=== PATIENT | female | born 1985 | race African-American/Black ===

== ENCOUNTER 2017-02-03 17:02 | Emergency (ER) | payer OTHER ==
[2017-02-03] MEDS ORDERED: KETOROLAC TROMETHAMINE 60 MG/2 ML VIAL IM ONE (17:12)
[2017-02-03 17:34] VITALS: BP 160/58
--- NOTE | 2017-02-03 20:01 | ED Physician Documentation ---
General Adult - HISTORIAN Historian: patient - HPI Stated Complaint: Right Sided Jaw Pain Chief Complaint: General Adult Timing: worse Severity: severe Further Comments: yes (31 year old female presents with complaints of right jaw pain. C/O intermittent shooting pain in upper jaw, radiating to ear x 3 days. Denies injury, reports similar episode 1 year ago.) - ROS CONST: no problems EYES/ENT: none CVS/RESP: none GI/: none MS/SKIN/LYMPH: none NEURO/PSYCH: denies: headache, fainting, dizziness, tingling, numbness, difficulty walking, difficulty with speech, anxiety, depression - PAST HX Past History: hypertension, other (depression) Allergies/Adverse Reactions: Allergies Allergy/AdvReac Type Severity Reaction Status Date / Time latex Allergy Verified 02/03/17 17:13 Home Medications: Ambulatory Orders Medication Instructions Recorded Lisinopril [Prinivil] 20 mg PO QD 08/23/14 Citalopram Hydrobromide [Celexa] 20 mg PO QD 02/03/17 - SOCIAL HX Smoking History: non-smoker - FAMILY HX Family History: No - VITAL SIGNS Vital Signs: Vital Signs Temp Pulse Resp BP Pulse Ox 98 F 72 18 160/58 98 02/03/17 17:05 02/03/17 17:32 02/03/17 17:32 02/03/17 17:32 02/03/17 17:32 - REVIEWED ASSESSMENTS Nursing Assessment Reviewed: Yes Vitals Reviewed: Yes Progress - Progress Progress: Cannot determine source of pain, no dental caries, no gum disease, no gum erythema. Patient states she has not been able to sleep the past 2 nights, reports pain is worse laying down. Discharged with ultra. Encouraged to follow up with dentist. ED Results Lab/Radiology - Orders Orders: ED Orders Category Date Time Status Ketorolac Tromethamine [Toradol] Med 02/03/17 17:12 Discontinued 60 mg IM NOW ONE General Adult Physical Exam - PHYSICAL EXAM GENERAL APPEARANCE: moderate distress EENT: eye inspection normal, ENT inspection normal, pharynx normal, no signs of dehydration, DAVID, no nystagmus, TM's nml RESPIRATORY: no resp distress, chest non-tender, breath sounds normal CVS: reg rate & rhythm, heart sounds normal, equal pulses, no murmur, no gallop , PMI nml, no JVD, no friction rub, 24 ABDOMEN: soft, no organomegaly, normal bowel sounds, no abdominal bruit, no distension BACK: normal inspection, no CVA tenderness SKIN: normal color, warm/dry, NR, INT, PAL, DR EXTREMITIES: non-tender, normal range of motion, no evidence of injury, no edema , J, ENGINEERING LAB TECHNICIAN NEURO: oriented X3, CN's nml as tested, motor nml, sensation nml, mood/affect nml Discharge Clincal Impression: Jaw pain Referrals: Primary Doctor,No [Primary Care Provider] - 2 Days Additional Instructions: See your dentist this week. Home Medications: Ambulatory Orders Lisinopril [Prinivil] 20 mg PO QD 08/23/14 Citalopram Hydrobromide [Celexa] 20 mg PO QD 02/03/17 Condition: Stable Disposition: 01 HOME, SELF-CARE Decision to Admit: NO Decision Time: 17:25
== END 2017-02-03 17:32 | disposition home or self-care (01) ==
LOC: ED 17:02
DX: R68.84 Jaw pain (principal)
CPT/HCPCS: 96372; 99283; J1885

== ENCOUNTER 2017-02-13 18:59 | Emergency (ER) | payer SELFPAY ==
[2017-02-13 19:44] LABS: BASOPHILS % 0.2 (0.0-1.5); EOSINOPHILS % 1.3 % (0.0-6.8); MEAN CORPUSCULAR VOLUME 85.3 fl (80.0-100.0); MONOCYTES % 3.6 % (0.0-11.0); NEUTROPHILS # 6.2 # k/uL (1.4-7.7)
--- NOTE | 2017-02-13 20:03 | ED Physician Documentation ---
General Adult - HISTORIAN Historian: patient - HPI Stated Complaint: tooth pain Chief Complaint: General Adult Onset: days ago (01/31/17) Further Comments: yes (31 year old female patient presents with complaints of right jaw and dental pain. Patient reports subjective fever. States she has continued to have jaw and molar pain. Old records reviewed, patient seen on with similar complaints which started on 01/31/2017. Patient was instructed to follow up with dentist, has not seen dentist. Is out of ultram. Reports not taking her BP medication for 2 days. Rates pain 5/10) - ROS CONST: recent illness (right jaw, dental pain since 01/31) EYES/ENT: nasal congestion. denies: problems with vision, sore throat, nasal drainage CVS/RESP: cough. denies: chest pain, shortness of breath GI/: none MS/SKIN/LYMPH: none NEURO/PSYCH: denies: headache, fainting, dizziness, tingling, numbness, difficulty walking, difficulty with speech, anxiety, depression, other - PAST HX Past History: hypertension, other (depression) Allergies/Adverse Reactions: Allergies Allergy/AdvReac Type Severity Reaction Status Date / Time latex Allergy Verified 02/03/17 17:13 Home Medications: Ambulatory Orders Medication Instructions Recorded Lisinopril [Prinivil] 20 mg PO QD 08/23/14 Citalopram Hydrobromide [Celexa] 20 mg PO QD 02/03/17 - SOCIAL HX Smoking History: non-smoker - FAMILY HX Family History: No - VITAL SIGNS Vital Signs: Vital Signs Temp Pulse Resp BP Pulse Ox 101.9 F H 97 H 20 176/103 97 02/13/17 19:12 02/13/17 19:12 02/13/17 19:12 02/13/17 19:12 02/13/17 19:12 - REVIEWED ASSESSMENTS Nursing Assessment Reviewed: Yes Vitals Reviewed: Yes ED Results Lab/Radiology - Lab Results Lab Results: Lab Results 02/13/17 19:39 WBC 7.90 K/ul K/ul (4.00-12.00) RBC 4.72 M/ul M/ul (3.90-5.20) Hgb 13.2 g/dL g/dL (12.0-16.0) Hct 40.3 % % (34.5-46.5) MCV 85.3 fl fl (80.0-100.0) MCH 28.0 pg pg (28.0-34.0) MCHC 32.8 g/dL g/dL (30.0-36.0) RDW 12.7 % % (11.3-14.3) Plt Count 201 K/mm3 K/mm3 (130-400) Neut % (Auto) 79.0 % % (39.0-79.0) Lymph % (Auto) 14.8 % L % (16.0-50.0) [place] % (Auto) 3.6 % % (0.0-11.0) Eos % (Auto) 1.3 % % (0.0-6.8) Baso % (Auto) 0.2 (0.0-1.5) Neut # (Auto) 6.2 # k/uL # k/uL (1.4-7.7) Lymph # (Auto) 1.2 # k/uL # k/uL (0.6-4.0) [place] # (Auto) 0.3 # k/uL # k/uL (0.0-0.9) Eos # (Auto) 0.1 # k/uL # k/uL (0.0-0.6) Baso # (Auto) 0.0 # k/uL # k/uL (0.0-0.5) Reactive Lymphs % 1.0 % % (0.0-5.0) Reactive Lymphs # 0.1 # k/uL # k/uL (0.0-0.8) - Orders Orders: ED Orders Category Date Time Status CBC/PLATELET/DIFF Stat Lab 02/13/17 19:39 Completed CMP Stat Lab 02/13/17 19:39 Received UA W/MICRO IF INDICATED Stat Lab 02/13/17 19:13 Ordered General Adult Physical Exam - PHYSICAL EXAM GENERAL APPEARANCE: moderate distress EENT: eye inspection normal, ENT inspection normal, pharynx normal, no signs of dehydration, DAVID, no nystagmus, TM's nml, other (no dental caries, no gum edema or erythema noted. ) RESPIRATORY: no resp distress, chest non-tender, breath sounds normal CVS: reg rate & rhythm, heart sounds normal, equal pulses, no murmur, no gallop , PMI nml, no JVD, no friction rub, 24 ABDOMEN: soft, no organomegaly, normal bowel sounds, no abdominal bruit, no distension BACK: normal inspection, no CVA tenderness SKIN: normal color, warm/dry, NR, INT, PAL, DR EXTREMITIES: non-tender, normal range of motion, no evidence of injury, no edema , J, HEALTH POLICY ANALYST NEURO: oriented X3, CN's nml as tested, motor nml, sensation nml, mood/affect nml Discharge Clincal Impression: Otitis media Qualifiers: Otitis media type: suppurative Chronicity: acute Laterality: right Recurrence: not specified as recurrent Spontaneous tympanic membrane rupture: without spontaneous rupture Qualified Code(s): H66.001 - Acute suppurative otitis media without spontaneous rupture of ear drum, right ear Referrals: Primary Doctor,No [Primary Care Provider] - 2 Days Additional Instructions: court supervisor your prescription and start it in the morning. Use Tylenol every 4 hours as needed for pain and ibuprofen every 6 hours as needed for pain. Place cotton in your ear when you shower or bathe, do not get water in your ear canal until you have completed your antibiotics. Home Medications: Ambulatory Orders Lisinopril [Prinivil] 20 mg PO QD 08/23/14 Citalopram Hydrobromide [Celexa] 20 mg PO QD 02/03/17 Condition: Stable Disposition: 01 HOME, SELF-CARE Decision to Admit: NO Decision Time: 20:32
[2017-02-13] MEDS ORDERED: ACETAMINOPHEN 500 MG TABLET PO ONE (20:28)
[2017-02-13] MEDS ORDERED: KETOROLAC TROMETHAMINE 60 MG/2 ML VIAL IM ONE (20:28)
[2017-02-13] MEDS ORDERED: AMOXICILLIN 500 MG CAPSULE PO ONE (20:30)
[2017-02-13 20:53] VITALS: BP 150/94
[2017-02-13 21:31] LABS: TOTAL PROTEIN 6.7 g/dL (6.0-8.5)
[2017-02-14 05:35] LABS: APPEARANCE,URINE CLEAR (CLEAR); COLOR,URINE YELLOW (YELLOW); OCCULT BLOOD,URINE NEGATIVE (NEGATIVE); PH URINE 6.5 (5.0 - 8.0); UROBILINOGEN URINE 0.2 Eu (0.2-1.0)
== END 2017-02-13 20:49 | disposition home or self-care (01) ==
LOC: ED 18:59
DX: H66.001 Acute suppurative otitis media without spontaneous rupture of ear drum, right ear (principal)
CPT/HCPCS: 80053; 81002; 85025; 96372; 99283; J1885

== ENCOUNTER 2017-07-27 02:24 | Emergency (ER) | payer SELFPAY ==
[2017-07-27 02:39] VITALS: BP 159/91
[2017-07-27] MEDS: predniSONE 20 MG TABLET PO ONE (02:56)
[2017-07-27] MEDS: traMADol HCL 50 MG TABLET PO ONE (02:56)
--- NOTE | 2017-07-27 02:56 | ED Physician Documentation ---
General Adult - HISTORIAN Historian: patient - HPI Stated Complaint: rt jaw pain Chief Complaint: General Adult Additional Information: right jaw pain since 0100 Onset: hours (2) Timing: still present Severity: moderate Modifying Factors: ate a lot of crunchy vegetables today Quality: moderately severe Location: right tmj Further Comments: no - ROS CONST: no problems EYES/ENT: none CVS/RESP: none GI/: none MS/SKIN/LYMPH: none NEURO/PSYCH: denies: headache, fainting, dizziness, tingling, numbness, difficulty walking, difficulty with speech, anxiety, depression - PAST HX Past History: hypertension Other History: other (anxiety) Surgeries/Procedures: none Immunizations: referred to PCP Allergies/Adverse Reactions: Allergies Allergy/AdvReac Type Severity Reaction Status Date / Time latex Allergy Verified 07/27/17 02:34 Home Medications: Ambulatory Orders Medication Instructions Recorded NK [NK] 07/27/17 - SOCIAL HX Smoking History: cigarettes Alcohol Use: none Drug Use: none - FAMILY HX Family History: Yes - VITAL SIGNS Vital Signs: Vital Signs Temp Pulse Resp BP Pulse Ox 98.5 F 75 20 159/91 99 07/27/17 02:25 07/27/17 02:25 07/27/17 02:25 07/27/17 02:25 07/27/17 02:25 - REVIEWED ASSESSMENTS Nursing Assessment Reviewed: Yes Vitals Reviewed: Yes Progress - Results/Orders Results/Orders: no testing ordered - Progress Progress: pt. given 60 mg prednisone and 50 mg tramadol p.o. in ER Critical Care Note - Critical Care Note Total Time (mins): 0 ED Results Lab/Radiology - Lab Results Lab Results: none ordered - Radiology Radiology Impressions: none ordered - Orders Orders: ED Orders Category Date Time Status predniSONE [Deltasone] Med 07/27/17 02:48 Once 60 mg PO NOW ONE traMADol HCL [Ultram] Med 07/27/17 02:49 Once 50 mg PO NOW ONE General Adult Physical Exam - PHYSICAL EXAM GENERAL APPEARANCE: mild distress EENT: eye inspection normal, ENT inspection normal, pharynx normal, no signs of dehydration, DAVID, no nystagmus, TM's nml, other (tender over right tmj) NECK: normal inspection, thyroid normal, supple RESPIRATORY: no resp distress, chest non-tender, breath sounds normal CVS: reg rate & rhythm, heart sounds normal, equal pulses, no murmur, no gallop , PMI nml, no JVD, no friction rub ABDOMEN: soft, no organomegaly, normal bowel sounds, no abdominal bruit, no distension, non-tender BACK: normal inspection, no CVA tenderness SKIN: warm/dry, normal color EXTREMITIES: non-tender, normal range of motion NEURO: oriented X3, CN's nml as tested, motor nml, sensation nml, mood/affect nml, cognition normal Discharge Clincal Impression: TMJ arthralgia Qualifiers: Laterality: right Qualified Code(s): M26.621 - Arthralgia of right temporomandibular joint Referrals: Primary Doctor,No [Primary Care Provider] - 2 Days Comments: discharged in stable and improved condition with prednisone taper and tramadol Condition: Stable Disposition: 01 HOME, SELF-CARE Decision to Admit: NO Decision Time: 02:53
== END 2017-07-27 03:00 | disposition home or self-care (01) ==
LOC: ED 02:24
DX: M26.621 Arthralgia of right temporomandibular joint (principal)
CPT/HCPCS: 99282

== ENCOUNTER 2017-10-02 09:09 | Outpatient (CLI) | payer OTHER ==
[2017-10-02 09:31] LABS: BASOPHILS % 0.4 (0.0-1.5); EOSINOPHILS % 4.1 % (0.0-6.8); MEAN CORPUSCULAR HEMOGLOBIN 27.7 pg (28.0-34.0); MONOCYTES % 3.9 % (0.0-11.0); NEUTROPHILS # 5.4 # k/uL (1.4-7.7)
[2017-10-02 09:44] LABS: eGFR (African) > 60; eGFR (Non-African) > 60
== END 2017-10-02 09:10 ==
LOC: LAB 09:09
PROVIDERS: ATTEND Physician Assistant
DX: Z00.00 Encounter for general adult medical examination without abnormal findings (principal); R53.83 Other fatigue; M79.89 Other specified soft tissue disorders; E66.9 Obesity, unspecified; Z68.43 Body mass index [BMI] 50.0-59.9, adult
CPT/HCPCS: 36415; 80053; 80061; 82306; 83880; 84443; 85025

== ENCOUNTER 2018-06-27 04:07 | Emergency (ER) | payer MEDICAID, OTHER ==
[2018-06-27] MEDS ORDERED: AMOXICILLIN 500 MG CAPSULE PO ONE ×2 (04:57→04:58)
[2018-06-27] MEDS ORDERED: HYDROcodone /APAP 5/325 1 EACH TABLET PO ONE (04:59)
--- NOTE | 2018-06-27 05:05 | ED Physician Documentation ---
Sore Throat/Dental Pain - HISTORIAN Historian: patient - HPI Stated Complaint: tooth pain Chief Complaint: Dental Pain Onset: days ago (d[place] two days ago rt upper dental pain when bit down on somethine w/ exquisite pain tooth #3. pt has excellent teeth but slight percussion on tooth 3 prod severe reaction jak orbital swelling minimal-pt also reportedly has TMJ this area) Context: Abscess, Dental Caries Associated Symptoms: R ear pain. denies: fever, chills, sore throat, runny nose, congestion - ROS CONST: no problems CVS/RESP: none. denies: chest pain GI/: denies: problems urinating, nausea, vomiting NEURO/PSYCH: anxiety - PAST HX Past History: other (htn anxiety) Allergies/Adverse Reactions: Allergies Allergy/AdvReac Type Severity Reaction Status Date / Time latex Allergy Verified 06/27/18 04:22 - SOCIAL HX Smoking History: less than 1 pack/day Alcohol Use: occasionally Drug Use: none - FAMILY HX Family History: No - VITAL SIGNS Vital Signs: Vital Signs Temp Pulse Resp BP Pulse Ox 97.8 F 77 16 165/95 99 06/27/18 04:16 06/27/18 04:16 06/27/18 04:16 06/27/18 04:16 06/27/18 04:16 - REVIEWED ASSESSMENTS Nursing Assessment Reviewed: Yes Vitals Reviewed: Yes ED Results Lab/Radiology - Orders Orders: ED Orders Category Date Time Status Amoxicillin [Amoxil] Med 06/27/18 04:57 Discontinued 1,000 mg PO .STK-MED ONE Amoxicillin [Amoxil] Med 06/27/18 04:58 Once 1,000 mg PO NOW ONE HYDROcodone /APAP 5/325 [[place] 5/325] Med 06/27/18 04:59 Once 2 each PO NOW ONE Dental Pain Physical Exam - EXAM General Appearance: moderate distress Head/Neck: head nml inspection, trachea midline, no lymphadenopathy, mandibular swelling (R) Mouth/Throat: lips nml, gums nml, pharynx nml, voice nml Respiratory: no resp. distress, breath sounds nml CVS: reg. rate & rhythm, heart sounds nml Abdomen: soft, non-tender Extremities: non-tender, nml ROM Skin: warm/dry, normal color. No: cyanosis, diaphoresis Neuro/Psych: none Discharge Clincal Impression: fractured tooth, dental sepsis Referrals: Micah Savage PA [Primary Care Provider] - 2 Days Comments: pt will see dentist soon Condition: Good Disposition: 01 HOME, SELF-CARE Decision to Admit: NO Decision Time: 05:28
[2018-06-27 05:30] VITALS: BP 135/78
== END 2018-06-27 05:27 | disposition home or self-care (01) ==
LOC: ED 04:07
DX: K04.7 Periapical abscess without sinus (principal); K03.81 Cracked tooth
CPT/HCPCS: 99282; 99283; A9270

== ENCOUNTER 2018-07-19 10:00 | Emergency (ER) | payer MEDICAID, OTHER ==
--- NOTE | 2018-07-19 10:04 | ED Physician Documentation ---
Sore Throat/Dental Pain - HISTORIAN Historian: patient - HPI Chief Complaint: Dental Pain Onset: other (this has been ongoing for years ) Context: Abscess Associated Symptoms: denies: fever, chills Worsened By: heat, cold Further Comments: yes (She reports that she has been fighting dental issues for a "long time" she was seen last month for abscess in same tooth - she did finish meds but states last night the pain returned. She denies a fever. She reports she has a dental appt 08.01.18. Denies any nasuea. States pain is 03/26) - ROS CONST: no problems - PAST HX Past History: none Other History: other (HTN ) Immunizations: UTD Allergies/Adverse Reactions: Allergies Allergy/AdvReac Type Severity Reaction Status Date / Time latex Allergy Verified 06/27/18 04:22 - SOCIAL HX Smoking History: non-smoker Alcohol Use: none Drug Use: none - FAMILY HX Family History: No - VITAL SIGNS Vital Signs: Vital Signs Temp Pulse Resp BP Pulse Ox 135/78 06/27/18 05:27 - REVIEWED ASSESSMENTS Nursing Assessment Reviewed: Yes Vitals Reviewed: Yes Dental Pain Physical Exam - EXAM General Appearance: no acute distress, alert Head/Neck: head nml inspection Eyes: eyes nml inspection Mouth/Throat: lips nml, no air way problems, membranes nml, dental tenderness (right upper tooth with red gum/obvious decay . No drainage noted ) Ear/Nose: nml inspection Respiratory: no resp. distress, breath sounds nml CVS: reg. rate & rhythm, heart sounds nml Abdomen: soft, normal bowel sounds, no distension, non-tender Extremities: non-tender Skin: warm/dry, normal color Neuro/Psych: none Discharge Clincal Impression: Dental abscess Referrals: Primary Doctor,No [Primary Care Provider] - 2 Days Comments: 1. Tylenol or Ibuprofen OTC as directed for mild pain 2. Tramadol 50 mg take 1 by mouth every 12 hours as needed for more severe pain 3. Warm salt water gargles 4. KEEP appt with dentist 5. See PCP in 2-4 days if no improvement 6. Return to ER for any concerns Disposition: 01 HOME, SELF-CARE Decision to Admit: NO Date of Decison to Admit: 07/19/18 Decision Time: 10:23
[2018-07-19] MEDS ORDERED: KETOROLAC TROMETHAMINE 60 MG/2 ML VIAL IM ONE (10:17)
[2018-07-19 10:19] VITALS: BP 153/83
== END 2018-07-19 10:28 | disposition home or self-care (01) ==
LOC: ED 10:00
DX: K04.7 Periapical abscess without sinus (principal)
CPT/HCPCS: 96372; 99282; 99283; J1885